=== PATIENT | female | born 2000 | race African-American/Black ===

== ENCOUNTER 2022-12-25 20:23 | Outpatient (CLI) | payer OTHER ==
--- NOTE | 2022-12-26 09:44 | XRAY Report ---
PROCEDURE: Knee 3 View RT INDICATIONS: PAIN IN RIGHT KNEE TECHNIQUE: 3 views of the right knee(s) were acquired. COMPARISON: None. FINDINGS: Bones: No fractures or dislocations. Joint spaces are well-preserved. No patella subluxation. No lisa picious bony lesions. Soft tissues: Small knee joint effusion. No suspicious soft tissue calcifications or masses. IMPRESSION: No acute bony abnormality. Small joint effusion. Reviewed by: Zay Long MD on 12/26/2022 9:42 AM PDT Approved by: Zay Long MD on 12/26/2022 9:42 AM PDT Station ID: [id number]
== END 2022-12-25 20:24 | disposition home or self-care (01) ==
LOC: DI 20:23
PROVIDERS: ATTEND Registered Nurse
DX: M25.561 Pain in right knee (principal); M25.461 Effusion, right knee

== ENCOUNTER 2023-01-28 15:56 | Emergency (ER) | payer OTHER ==
[2023-01-28 16:06] VITALS: BP 116/67; O2SAT 99
[2023-01-28 17:41] LABS: B. PARAPERTUSSIS- RESP PCR PAN NOT DETECTED; B. PERTUSSIS- RESP PCR PANEL NOT DETECTED; C. PNEUMONIAE- RESP PCR PANEL NOT DETECTED; CORONAVIRUS 229E-RESP PCR NOT DETECTED; CORONAVIRUS HKU1-RESP PCR NOT DETECTED; CORONAVIRUS NL63-RESP PCR NOT DETECTED; CORONAVIRUS OC43-RESP PCR NOT DETECTED; HUMAN METAPNEUMOVIRUS NOT DETECTED; INFLUENZA A- RESP PCR PANEL NOT DETECTED; INFLUENZA B - RESP PCR PANEL NOT DETECTED; M. PNEUMONIAE- RESP PCR PANEL NOT DETECTED; PARAINFLUENZA VIRUS 1 NOT DETECTED; PARAINFLUENZA VIRUS 2 NOT DETECTED; PARAINFLUENZA VIRUS 3 NOT DETECTED; PARAINFLUENZA VIRUS 4 NOT DETECTED; RHINOVIRUS/ENTEROVIRUS DETECTED; RSV- RESP PCR PANEL NOT DETECTED; SARS-CoV-2 -RESP PCR PANEL NOT DETECTED
--- NOTE | 2023-01-28 17:46 | ED Physician Documentation ---
PD HPI URI - Stated complaint Stated Complaint: N/V,COUGH - Chief complaint Chief Complaint: General - History obtained from History obtained from: Patient - Additional information Additional information: Patient is a 22-year-old female presenting for evaluation of subjective fevers, cough and congestion for the past 2 days. Patient states that she visited family this past weekend who were also sick with similar symptoms. Has not tried any medications for her symptoms. Denies chest pain, shortness of air, abdominal pain. Reports having an episode of vomiting yesterday but has been tolerating liquids okay today. Review of Systems Constitutional: reports: Fever (Subjective) Nose: reports: Congestion Cardiac: denies: Chest pain / pressure Respiratory: reports: Cough. denies: Dyspnea GI: denies: Abdominal Pain : denies: Dysuria PD PAST MEDICAL HISTORY - Allergies Allergies/Adverse Reactions: Allergies Allergy/AdvReac Type Severity Reaction Status Date / Time No Known Drug Allergies Allergy Verified 01/28/23 16:02 PD ED PE NORMAL - General General: Alert and oriented X 3, No acute distress, Well developed/nourished - HEENT HEENT: Atraumatic, Moist mucous membranes, Pharynx benign, Other (No sinus tenderness) - Neck Neck: Supple, no meningeal sign - Cardiac Cardiac: RRR, No murmur - Respiratory Respiratory: No respiratory distress, Clear bilaterally - Abdomen Abdomen: Soft, Non tender - Derm Derm: Warm and dry - Neuro Neuro: Normal speech Results - Vitals Vitals: Vital Signs - 24 hr 01/28/23 16:00 Temperature 36.7 C Heart Rate 96 Respiratory 20 Rate Blood Pressure 116/67 O2 Saturation 99 Oxygen O2 Source Room air - Labs Labs: Laboratory Tests 01/28/23 01/28/23 16:04 16:04 Nasal Adenovirus (PCR) NOT DETECTED Nasal B. parapertussis DNA (PCR) NOT DETECTED Nasal Coronavir 229E PCR NOT DETECTED Nasal Coronavir HKU1 PCR NOT DETECTED Nasal Coronavir NL63 PCR NOT DETECTED Nasal Coronavir OC43 PCR NOT DETECTED Nasal Enterovir/Rhinovir PCR DETECTED A Nasal Influenza B PCR NOT DETECTED Nasal Influenza A PCR NOT DETECTED Nasal Parainfluen 1 PCR NOT DETECTED Nasal Parainfluen 2 PCR NOT DETECTED Nasal Parainfluen 3 PCR NOT DETECTED Nasal Parainfluen 4 PCR NOT DETECTED Nasal RSV (PCR) NOT DETECTED Nasal B.pertussis DNA PCR NOT DETECTED Nasal C.pneumoniae (PCR) NOT DETECTED Sylvester Human Metapneumo PCR NOT DETECTED Nasal M.pneumoniae (PCR) NOT DETECTED Nasal SARS-CoV-2 (PCR) NOT DETECTED SARS-CoV-2 (PCR) NOT DETECTED PD Medical Decision Making - ED course Complexity details: reviewed results ED course: Patient with URI symptoms for 2 days.Had vomiting yesterday but today is tolerating p.o. intake without issue. Vital signs are stable. No abdominal pain and abdominal exam is benign. No labored breathing and lung sounds are clear. Respiratory swab was obtained and is positive for rhinovirus enterovirus. Patient counseled on continued supportive care as well as concerning symptoms to return for. Departure - Departure Disposition: 01 Home, Self Care Clinical Impression: Viral URI with cough Condition: Stable Instructions: ED Viral Syndrome Comments: You have tested positive for enterovirus/Rhinovirus. These causes symptoms of the common cold. Unfortunately there is no specific medication for treatment Other than treating the symptoms and antibiotics Are not indicated as this is a viral infection. Please continue with acetaminophen or ibuprofen as needed for fever, body aches as well as staying hydrated. Return to the emergency department with any worsening symptoms such as labored breathing. Otherwise I would expect your symptoms to get better over the course of the next week.
== END 2023-01-28 18:01 | disposition home or self-care (01) ==
LOC: ED 15:56
DX: J06.9 Acute upper respiratory infection, unspecified (principal); Z20.822 Contact with and (suspected) exposure to COVID-19
CPT/HCPCS: 87633; 87635; 99282; 99283